=== PATIENT | female | born 1975 | race Caucasian/White ===

== ENCOUNTER → 2017-01-30 | Outpatient (CLI) | payer OTHER ==
[~2017-01-30] MED LIST: ENOX150D SQ; LEVO150T11 PO; LEVO175T9 PO; NEBI10TA PO; OLME1TAB31 PO; ONDA4TAB7 PO; RIVA20TA PO; TRAM50TA4 PO
--- NOTE | 2017-01-31 08:20 | DI ---
Indication: ITS.REASON: N23 RENAL COLIC PROCEDURE: KUB: Encounter: Initial Comparison: None Findings: Changes of prior hernia repair. Nonobstructive nonspecific bowel gas pattern. No obvious renal or ureteral stones. Moderate stool in the right colon. Bony structures are unremarkable. Impression: No radiographically apparent stones. .
== END ==
LOC: IMA 17:27
PROVIDERS: ATTEND Family Medicine
DX: N23 Unspecified renal colic (principal)

== ENCOUNTER → 2017-02-04 | Outpatient (CLI) | payer OTHER ==
--- NOTE | 2017-02-04 11:06 | DI ---
EXAM: CT RENAL W/O CONTRAST LOCATION OF DICTATION: [place] HISTORY: ITS.REASON: N20.2 CALCULUS OF KIDNEY W/ CALCULUS OF URETER COMPARISON: No prior studies available for comparison. TECHNIQUE: Multiple contiguous axial images were obtained of the abdomen and pelvis without contrast. Thin sections were obtained through the kidneys and ureters. Automated Exposure Control and Iterative Reconstruction dose reducing techniques were utilized. FINDINGS: CT ABDOMEN LUNG BASES: Unremarkable LIVER: The liver is mildly enlarged measuring 20 cm craniocaudally. SPLEEN: Unremarkable. GALLBLADDER: Unremarkable. PANCREAS: Unremarkable ADRENAL GLANDS: Unremarkable. KIDNEYS: There is a four mm calculus demonstrated within the lower pole the left kidney. There are no obstructing ureteral calculi identified. There is no hydronephrosis. AORTA: Unremarkable. There is an IVC filter noted to be in place. LYMPH NODES: Unremarkable. STOMACH BOWEL LOOPS: The bowel loops are normal caliber. There is no bowel obstruction or free intraperitoneal air. The appendix is normal. There are a few diverticulum demonstrated about the sigmoid and descending colon without diverticulitis. PERITONEAL CAVITY: There is no abdominal or pelvic inflammatory mass or ascites. Ventral abdominal hernia repair is suggested. CT PELVIS URINARY BLADDER: Unremarkable. PELVIC VISCERA: The uterus is unremarkable. There are no suspicious adnexal masses. There is no significant free fluid. OSSEOUS STRUCTURES: Unremarkable. IMPRESSION: 1. There is a tiny 4 mm calculus suggested within the lower pole the left kidney. There are no obstructing ureteral calculi. There is no hydronephrosis. 2. No inflammatory mass, lymphadenopathy, or ascites. 3. Postsurgical changes of ventral abdominal hernia repair. IVC filter is in place. 4. Diverticulosis without diverticulitis. .
== END ==
LOC: IMA 08:50
PROVIDERS: ATTEND Family Medicine
DX: N20.0 Calculus of kidney (principal); K57.30 Diverticulosis of large intestine without perforation or abscess without bleeding; Z98.890 Other specified postprocedural states

== ENCOUNTER 2017-02-06 15:28 | Observation (INO) | payer OTHER ==
[~2017-02-06] VITALS: Ht 165.1 cm; Wt 162.9 kg
[~2017-02-06 15:28] MED LIST changes: -ENOX150D SQ; -LEVO175T9 PO; -NEBI10TA PO; -OLME1TAB31 PO; -RIVA20TA PO; -TRAM50TA4 PO
--- OUTSIDE RECORDS SUMMARY | 2017-02-06 15:32 | XMS REPORT | Continuity of Care Document ---
Author Author [facility] Organization [facility] Address Unknown Phone Unavailable Support Name Relationship Address Phone DENIZ SETHI II, MD Caregiver [address] [facility] [address] [place] [phone] SARABJIT ALCALA MD Caregiver [facility] [place] [phone] RYAN MOELLER Next Of Kin [address] [place], [place] [address] Insurance Providers Payer Name Policy Number Subscriber Name Relationship [facility] [id number] Ryan Moeller 01 Spouse Problems No known problems or medical conditions. Medications No known medications. Social History No social history. Hospital Discharge Instructions No hospital discharge instructions. Plan of Care No plan of care. Functional Status No functional status results. Allergies, Adverse Reactions, Alerts Allergen Type Severity Reaction Status Last Updated Sulfa(Sulfonamide Antibiotics) Allergy Intermediate HIVES Active 02/18/12 Clavulanate Allergy Intermediate HIVES Active 02/18/12 adhesive tape Allergy Intermediate BLISTERS Active 02/18/12 Amoxicillin Allergy Intermediate HIVES Active 02/18/12 Immunizations No immunization records. Vital Signs No known vital signs results. Results Test Source Date Result Interp. Ref. Range Comments Activated Partial Thromboplast Time February 18, 2012 8:50am 24.9 SEC N 24- 36 Alanine Aminotransferase (ALT/SGPT) February 18, 2012 8:50am 32 U/L N 9-52 Albumin February 18, 2012 8:50am 4.1 G/DL N 3.5-5.0 Albumin/Globulin Ratio February 18, 2012 8:50am 1.2 RATIO N 1.1-2.2 Alkaline Phosphatase February 18, 2012 8:50am 81 U/L N 38-126 Anion Gap February 18, 2012 8:50am 8 MEQ/L N 5-15 Aspartate Amino Transf (AST/SGOT) February 18, 2012 8:50am 36 U/L N 14-36 BUN/Creatinine Ratio February 18, 2012 8:50am 10 RATIO N 6-26 Basophils # (Auto) February 18, 2012 8:50am 0.0 T/MM3 N 0-0.2 Basophils (%) (Auto) February 18, 2012 8:50am 0.7 % N 0-2 Blood Urea Nitrogen February 18, 2012 8:50am 8.0 MG/DL N 7-17 Calcium Level February 18, 2012 8:50am 8.9 MG/DL N 8.4-10.2 Calculated Osmolality February 18, 2012 8:50am 270 MOSM/KG N 261-280 Carbon Dioxide Level February 18, 2012 8:50am 29 MEQ/L N 22-30 Chloride Level February 18, 2012 8:50am 105 MEQ/L N 98-107 Creatinine February 18, 2012 8:50am 0.8 MG/DL N 0.7-1.2 D-Dimer February 18, 2012 11:15am 194 NG/ML N 0-230 <224 NG/ML=PRESUMPTIVE NEGATIVE FOR PE OR DVT>224 NG/ML=ADDITIONAL EVALUATION FOR PE OR DVT RECOMMENDED Eosinophils # (Auto) February 18, 2012 8:50am 0.1 T/MM3 N 0-0.5 Eosinophils (%) (Auto) February 18, 2012 8:50am 1.6 % N 0-4 Free Thyroxine February 18, 2012 8:50am 1.09 NG/DL N 0.78-2.19 Globulin February 18, 2012 8:50am 3.3 G/DL N 2.4-3.6 Glucose Level February 18, 2012 8:50am 84 MG/DL N 65-110 Hematocrit February 18, 2012 8:50am 40.4 % N 36-46 Hemoglobin February 18, 2012 8:50am 13.3 GM/DL N 12-16 Lymphocytes # (Auto) February 18, 2012 8:50am 2.1 T/MM3 N 1-4.8 Lymphocytes (%) (Auto) February 18, 2012 8:50am 39.2 % N 23-45 Magnesium Level February 18, 2012 8:50am 2.0 MG/DL N 1.6-2.3 Mean Corpuscular Hemoglobin February 18, 2012 8:50am 29.6 UUG N 26-34 Mean Corpuscular Hemoglobin Concent February 18, 2012 8:50am 32.9 GM/DL N 31- 37 Mean Corpuscular Volume February 18, 2012 8:50am 90.0 UM3 N 80-100 Mean Platelet Volume February 18, 2012 8:50am 10.2 UM3 N 9.4-12.4 Monocytes # (Auto) February 18, 2012 8:50am 0.4 T/MM3 N 0-0.8 Monocytes (%) (Auto) February 18, 2012 8:50am 7.3 % N 0-9.0 Neutrophils # (Auto) February 18, 2012 8:50am 2.8 T/MM3 N 1.8-7.7 Neutrophils (%) (Auto) February 18, 2012 8:50am 51.0 % N 33-66 Platelet Count February 18, 2012 8:50am 229 T/MM3 N 130-400 Potassium Level February 18, 2012 8:50am 3.8 MEQ/L N 3.6-5 Prothromb Time International Ratio February 18, 2012 8:50am 0.95 N 0.86-1.10 THERAPUTIC RANGE=2.00-3.00 FOR ANTI-THROMBOSIS THERAPUTIC RANGE=2.50-3.50 FOR IMPLANTED VALVE RDW Standard Deviation February 18, 2012 8:50am 40.7 FL N 36.9-50.2 Red Blood Count February 18, 2012 8:50am 4.49 M/MM3 N 4.00-5.20 Sodium Level February 18, 2012 8:50am 142 MEQ/L N 134-144 Thyroid Stimulating Hormone (TSH) February 18, 2012 8:50am 2.02 MIU/L N 0.47- 4.68 Total Bilirubin February 18, 2012 8:50am 0.90 MG/DL N 0.20-1.30 Total Protein February 18, 2012 8:50am 7.4 G/DL N 6.3-8.2 Troponin I February 18, 2012 8:50am < 0.012 ng/ml 0-0.12 Urine Bacteria February 18, 2012 10:00am Trace H - Has specimen been collected/obtained? Y Urine Bilirubin February 18, 2012 10:00am Negative - Has specimen been collected/obtained? Y Urine Blood February 18, 2012 10:00am 1+ H - Has specimen been collected/ obtained? Y Urine Collection Type February 18, 2012 10:00am Voided - Has specimen been collected/obtained? Y Urine Color February 18, 2012 10:00am Yellow - Has specimen been collected /obtained? Y Urine Glucose (UA) February 18, 2012 10:00am Negative - Has specimen been collected/obtained? Y Urine Ketones February 18, 2012 10:00am Negative - Has specimen been collected/obtained? Y Urine Leukocyte Esterase February 18, 2012 10:00am Trace H - Has specimen been collected/obtained? Y Urine Mucus February 18, 2012 10:00am Present - Has specimen been collected/obtained? Y Urine Nitrite February 18, 2012 10:00am Negative - Has specimen been collected/obtained? Y Urine Protein February 18, 2012 10:00am Negative - Has specimen been collected/obtained? Y Urine RBC February 18, 2012 10:00am 0-1 /HPF - Has specimen been collected /obtained? Y Urine Specific [place] February 18, 2012 10:00am 1.005 L - Has specimen been collected/obtained? Y Urine Squamous Epithelial Cells February 18, 2012 10:00am Few - Has specimen been collected/obtained? Y Urine Turbidity February 18, 2012 10:00am Clear - Has specimen been collected/obtained? Y Urine Urobilinogen February 18, 2012 10:00am Normal EU/DL - Has specimen been collected/obtained? Y Urine WBC February 18, 2012 10:00am 0-1 /HPF - Has specimen been collected /obtained? Y Urine pH February 18, 2012 10:00am 7.0 - Has specimen been collected/ obtained? Y White Blood Count February 18, 2012 8:50am 5.5 T/MM3 N 4.5-11.0 Lab Scanned Report August 28, 2009 9:40am BLOOD BANK DOCUMENTATION [id number] - Glomerular Filtration Rate Calc February 18, 2012 8:50am 80 - Immature Granulocyte # (Auto) February 18, 2012 8:50am 0.01 T/MM3 N 0.00- 0.03 Immature Granulocyte % (Auto) February 18, 2012 8:50am 0.2 % N 0.0-0.5 Name: DULCE MOELLER Unit #: [id number] : 1975 Sex: F Loc / Svc: [facility] DOS: 02/04/14 Signed Report #: [id number] DIAGNOSTIC IMAGING REPORT TYPE OF EXAM: US VENOUS DUPLEX, LOWER EXT RT Dictated By: SHERI HARTMAN MD INDICATION: ITS.REASON: 782.3 SWELLING,729.5 LEG PAIN;V12.51 HX DVT US VENOUS DUPLEX, LOWER EXT RT: Comparison: Duplex ultrasound dated June 21, 2007 Findings: There is nonocclusive deep venous thrombosis in the right thigh. This extends from the distal superficial femoral vein through the popliteal vein. The common femoral and posterior tibial veins appear patent and compressible. Greater saphenous vein is patent. Impression: Nonocclusive deep vein thrombosis involving the distal right superficial femoral vein through the popliteal vein. The patient had more extensive thrombosis in these areas in 2006 and the exact amount of acute versus chronic thrombus is unable to be determined with certainty. These results were discussed with Dr. Sethi at 1315 on February 04, 2014 . Procedures No known history of procedures. Encounters Encounter Location Date/Time Departed Emergency Room [facility] 04/24/14 9:16pm Registered Clinic [facility] 02/04/14 12:27pm Recent Diagnosis
[2017-02-06] MEDS ORDERED: NORMAL SALINE 1,000 ML IV ONE (15:47)
[2017-02-06] MEDS ORDERED: RIVA20TA PO (15:54)
[2017-02-06 15:57] LABS: BASOPHILS % (AUTO) 0.3 % (0-2); EOSINOPHILS # (AUTO) 0.1 T/MM3 (0-0.5); EOSINOPHILS % (AUTO) 0.8 % (0-4); HCT - HEMATOCRIT 38.1 % (36-46); HGB - HEMOGLOBIN 12.6 GM/DL (12-16); IMMATURE GRANULOCYTE # (AUTO) 0.02 T/MM3 (0.00-0.03); IMMATURE GRANULOCYTE % (AUTO) 0.3 % (0.0-0.5); LYMPHOCYTES # (AUTO) 2.3 T/MM3 (1-4.8); LYMPHOCYTES % (AUTO) 30.5 % (23-45); MEAN CORPUSCULAR HGB 29.6 UUG (26-34); MEAN CORPUSCULAR HGB CONC(MCHC 33.1 GM/DL (31-37); MEAN CORPUSCULAR VOLUME 89.4 UM3 (80-100); MEAN PLATELET VOLUME 10.1 UM3 (9.4-12.4); MONOCYTES # (AUTO) 0.6 T/MM3 (0-0.8); MONOCYTES % (AUTO) 7.8 % (0-9.0); NEUTROPHILS #(AUTO)-ABSOLUTE 4.6 T/MM3 (1.8-7.7); NEUTROPHILS % (AUTO) 60.3 % (33-66); RED BLOOD COUNT 4.26 M/MM3 (4.00-5.20); WBC - WHITE BLOOD COUNT 7.6 T/MM3 (4.5-11.0)
[2017-02-06] MEDS ORDERED: LEVO175T9 PO (15:57)
--- NOTE | 2017-02-06 15:57 | ERPDOC ---
Departure Disposition Decision Date: February 06, 2017 Disposition Decision Time: 19:01 Disposition: 02 TO OBS [facility] Impression Impression Impression: Primary Impression: Pulmonary embolism Pulmonary embolism type: other Chronicity: acute Acute cor pulmonale presence: without acute cor pulmonale Qualified Codes: I26.99 - Other pulmonary embolism without acute cor pulmonale Severity: Moderate Condition: Improved Seen By: Physician only Referrals: DENIZ SETHI II, MD (Family) Problems/Meds/Labs Reviewed?: Yes Medications reviewed and manag: Yes Follow up care ordered?: Yes Mental Status: Alert, Oriented HPI - Dyspnea General Chief Complaint: Back Pain or Injury Stated Complaint: HEAVINESS IN ARMS,PAINS MIDDLE OF BACK Time Seen by Provider: 15:47 Source: patient Exam Limitations: no limitations HPI - Dyspnea Initial Comments 42yo woman presents to the ER tonight with b/l arm pain and tearing back pain. Pt has a h/o chronic DVT; has a Pfeifer filter in place. Has had her anti- HTN changed recently; pt has had elevated BPs ever since. Had a CT 4 days ago, looking at her kidneys. Pt has been under increasing stress at home and work. Occurred At: home Onset/Timing: Rapid Duration: 1-3 hrs Pain/Severity Scale: Now & Worst: 6/10 Severity: moderate Activities at Onset: activity Prior Episodes/Possible Cause: no prior episodes Modifying Factors: IMPROVES WITH: lying down, rest, WORSE WITH: activity Associated Symptoms: shortness of breath Aspirin Treatment Today: contraindicated Hx of Similar Symptoms: No Allergies: Coded Allergies: Sulfa (Sulfonamide Antibiotics) (Verified Allergy, Intermediate, HIVES, 08/15) RASH adhesive tape (Verified Allergy, Intermediate, BLISTERS, 02/06/17) clavulanic acid (Verified Allergy, Mild, NAUSEA, 02/06/17) Past History Past Medical History Metabolic: hypertension, hypothyroidism Musculoskeletal: back pain Hematologic: DVT Vaccines Hx Influenza Vaccination: No Hx Pneumococcal Vaccination: No Review of Systems Musculoskeletal General: pain (Arms) Comments Back tearing Psychiatric Psychiatric: anxiety All other Systems All Other Systems: Reviewed and Negative Physical Exam General General Nourishment: well nourished, well developed, appears stated age, no acute distress, adult, obese General Body Habitus: well groomed Vitals and Pain First Documented Vital Signs Date Time Temp Pulse Resp B/P Pulse Ox O2 Delivery O2 Flow Rate FiO2 02/06/17 15:30 98.0 63 20 141/90 98 Room Air Weight: Kilograms: 162.200 Height (feet): 5 Height (inches): 5.00 Triage Pain Scale: RN VS reviewed by Provider: Yes Normal Exams: Head: Normocephalic w/o trauma Eyes: Pupils are PERRLA w/ EOMI, No scleral icterus, irritation ENMT: No facial trauma, nasal exudates, pharyngeal erythema Neck: Full range of motion, without adenopathy, JVD Lymphatic: No lymphadenopathy Musculoskeletal: No tenderness, or deformity noted Integumentary: No rashes, hives, or bruising noted Neurologic: Patient is alert, and oriented Psychiatric: Patient exhibits, appropriate attention Respiratory (brief) Respiratory: FOUND: clear all [place], equal bilaterally, symmetrical, NOT FOUND : rales, wheezes Cardiovascular (brief) Cardiac: FOUND: regular rate, regular rhythm, NOT FOUND: click, gallop, murmur , pedal edema, peripheral edema, rub Capillary Refill: <2 sec Pulses: all distal extremities, equal, strong Abdomen (brief) Abdominal Brief: FOUND: bowel normo active x4, soft, NOT FOUND: distended, hepatosplenomegaly, pulsatile mass, tender Differential Diagnoses Considering: Acute FL, CHF, Hyperventilation, Pneumonia, Pneumothorax, Pulmonary Edema, Pulmonary Embolus, Other (Aortic dissection) Progress Results/Orders Orders Procedure Category Date Status Time Cbc W/Auto LAB 02/06/17 Complete Diff-Reflex Manual 15:47 Bmp - Basic Metabolic LAB 02/06/17 Complete Panel 15:47 Probnp LAB 02/06/17 Complete 15:47 Troponin I W LAB 02/06/17 Complete Hemolysis Index 15:47 Tsh - Thyroid Stim LAB 02/06/17 Complete Hormone 15:47 EKG EKG 02/06/17 Taken 15:47 Iv Lock (Ed Only) EDM 02/06/17 Transmitted 15:47 Normal Saline (Normal PHA 02/06/17 Complete Saline Iv) 15:47 Cta Pe/Cta Aorta CT 02/06/17 Taken 15:55 Iohexol (Omnipaque) PHA 02/06/17 Complete 16:15 Iohexol (Omnipaque) PHA 02/06/17 Complete 16:15 Normal Saline (Ns) PHA 02/06/17 Complete 16:15 Saline Flush (Iv PHA 02/06/17 Complete Flush) 16:15 Place In Facility: ED ADM 02/06/17 Transmitted 18:26 Lab Results Laboratory Tests Test 02/06/17 15:51 White Blood Count 7.6T/MM3 Red Blood Count 4.26M/MM3 Hemoglobin 12.6GM/DL Hematocrit 38.1% Mean Corpuscular Volume 89.4UM3 Mean Corpuscular Hemoglobin 29.6UUG Mean Corpuscular Hemoglobin Concent 33.1GM/DL RDW Standard Deviation 40.4FL Platelet Count 276T/MM3 Mean Platelet Volume 10.1UM3 Immature Granulocyte % (Auto) 0.3% Neutrophils (%) (Auto) 60.3% Lymphocytes (%) (Auto) 30.5% Monocytes (%) (Auto) 7.8% Eosinophils (%) (Auto) 0.8% Basophils (%) (Auto) 0.3% Absolute Immature Granulocyte (auto 0.02T/MM3 Absolute Neutrophils (auto) 4.6T/MM3 Absolute Lymphocytes (auto) 2.3T/MM3 Absolute Monocytes (auto) 0.6T/MM3 Absolute Eosinophils (auto) 0.1T/MM3 Absolute Basophils (auto) 0.0T/MM3 Prothromb Time International Ratio 1.49 Activated Partial Thromboplast Time 33.5SEC Turbidity < 20 Sodium Level 144MEQ/L Potassium Level 3.8MEQ/L Chloride Level 100MEQ/L Carbon Dioxide Level 31MEQ/L Anion Gap 13MEQ/L Blood Urea Nitrogen 16.0MG/DL Creatinine 0.9MG/DL Glomerular Filtration Rate Calc 68 BUN/Creatinine Ratio 18RATIO Glucose Level 89MG/DL Calculated Osmolality 277MOSM/KG Calcium Level 9.5MG/DL Icterus Index < 2 Troponin I < 0.012ng/ml NH-Ege-E-Type Natriuretic Peptide 44PG/ML Thyroid Stimulating Hormone (TSH) 4.74MIU/L Chemistry Specimen Hemolysis < 15 Medications Current ED Medications Sodium Chloride (Normal Saline IV) 1,000 ml @ 0 mls/hr Q0M ONCE IV Last administered on 02/06/17t 15:59; Start 02/06/17 at 15:47; Stop 02/06/17 at 15:50 ; Status DC Iohexol (Omnipaque) 1 bottle [employer]-Segway ONCE .ROUTE ; Start 02/06/17 at 16:15; Stop 02/06/17 at 16:16; Status DC Iohexol 1 bottle 1 bottle STK-MED ONCE .ROUTE ; Start 02/06/17 at 16:15; Stop at 16:16; Status DC Sodium Chloride (NS) 100 ml @ As Directed STK-MED ONCE .ROUTE ; Start 02/06/17 at 16:15; Stop 02/06/17 at 16:16; Status DC Sodium Chloride (Iv Flush) 10 ml STK-MED ONCE .ROUTE ; Start 02/06/17 at 16:15; Stop 02/06/17 at 16:16; Status DC Progress Progress No dissection or PE found. Pt is already on chronic anticoag therapy. Has chronic DVT and Pfeifer filter. In the absence of evidence of intrathoracic pathology, pts sx are very reminiscent of panic attack or other anxiety d/o. EKG EKG : Rate: 60-100 Rhythm: sinus [place]: normal QRS: normal Intervals: normal ST/T: non-specific changes Interpreted by: signing physician Consult/PCP Consult/PCP #1: Physician Contacted: Leonel Time Called: 18:09 Time of first response: 18:09 Type of discussion: Phone Consult/PCP Discussion Details Pt has b/l LL PE's. Consult/PCP #2: Physician Contacted: Dr. Christine Time Called: 18:13 Type of discussion: Phone Consult/PCP CT CT : CT: Aorta IV contrast (With PE) Interpretation: Abnormal (No dissection; B/l LL PEs), Discussed w/ Radiologist, Reviewed Written Report SHARLENE WELDON DO February 06, 2017 15:57
[2017-02-06] MEDS ORDERED: TRAM50TA4 PO (15:58)
[2017-02-06] MEDS ORDERED: OLME1TAB31 PO (15:58)
[2017-02-06] MEDS ORDERED: NEBI10TA PO (15:59)
--- OUTSIDE RECORDS SUMMARY | 2017-02-06 16:02 | XMS REPORT | Continuity of Care Document ---
Author Author [facility] Organization [facility] Address Unknown Phone Unavailable Support Name Relationship Address Phone DENIZ SETHI II, MD Caregiver [address] [facility] [address] [place] [phone] SARABJIT ALCALA MD Caregiver [facility] [place] [address] [place] [phone] RYAN MOELLER Next Of Kin [address] [place], [place] [address] Insurance Providers Payer Name Policy Number Subscriber Name Relationship [facility] [id number] Ryan Moeller 01 Spouse Problems No known [...] specimen been collected /obtained? Y Urine Specific [place] February 18, 2012 10:00am 1.005 L - [...] August 28, 2009 9:40am BLOOD BANK DOCUMENTATION [id number] - Glomerular Filtration Rate Calc February 18, 2012 8:50am 80 - Immature Granulocyte # (Auto) February 18, 2012 8:50am 0.01 T/MM3 N 0.00- 0.03 Immature Granulocyte % (Auto) February 18, 2012 8:50am 0.2 % N 0.0-0.5 Name: DULCE MOELLER Unit #: [id number] : 1975 Sex: F [facility] DOS: 02/04/14 Signed Report #: [id number] DIAGNOSTIC IMAGING REPORT TYPE OF EXAM: US [...] Encounters Encounter Location Date/Time Departed Emergency Room [facility] 04/24/14 9:16pm Registered Clinic [facility] 02/04/14 12:27pm Recent Diagnosis
[2017-02-06 16:06] LABS: ANION GAP 13 MEQ/L (5-15); BUN/CREATININE RATIO 18 RATIO (6-26); CALCIUM 9.5 MG/DL (8.4-10.2); CHLORIDE 100 MEQ/L (98-107); CO2 - CARBON DIOXIDE 31 MEQ/L (22-30); CREATININE 0.9 MG/DL (0.7-1.2); GLOMERULAR FILTRATION RATE 68; GLUCOSE 89 MG/DL (65-110); POTASSIUM 3.8 MEQ/L (3.6-5); SODIUM 144 MEQ/L (134-144)
[2017-02-06] MEDS ORDERED: IOHEXOL 350 MG/ML 50ml INJECTION ONE (16:15)
[2017-02-06] MEDS ORDERED: NORMAL SALINE 100 ML ONE (16:15)
[2017-02-06] MEDS ORDERED: SALINE FLUSH 10ml SYRINGE ONE (16:15)
[2017-02-06] MEDS ORDERED: IOHEXOL 350 MG/ML 75ml INJECTION ONE (16:15)
[2017-02-06 16:19] LABS: PROBNP 44 PG/ML (0-175)
[2017-02-06 16:37] LABS: THYROID STIM HORMONE-TSH 4.74 MIU/L (0.47-4.68)
--- OUTSIDE RECORDS SUMMARY | 2017-02-06 18:34 | XMS REPORT | Continuity of Care Document ---
Author Author [facility] Organization [facility] Address Unknown Phone Unavailable Support Name Relationship Address Phone DENIZ SETHI II, MD Caregiver [address] [facility] [address] [place] [phone] SARABJIT ALCALA MD Caregiver [facility] [phone] RYAN MOELLER Next Of Kin [address] [place], [place] [id number] Insurance Providers Payer Name Policy Number Subscriber Name Relationship [facility] [id number] Ryan Moeller 01 Spouse Problems No known [...] specimen been collected /obtained? Y Urine Specific [place] February 18, 2012 10:00am 1.005 L - [...] August 28, 2009 9:40am BLOOD BANK DOCUMENTATION [id number] - Glomerular Filtration Rate Calc February 18, 2012 8:50am 80 - Immature Granulocyte # (Auto) February 18, 2012 8:50am 0.01 T/MM3 N 0.00- 0.03 Immature Granulocyte % (Auto) February 18, 2012 8:50am 0.2 % N 0.0-0.5 Name: DULCE MOELLER Unit #: [id number] : 1975 Sex: F Loc / Svc: [facility] DOS: 02/04/14 Signed Report #: [id number] DIAGNOSTIC IMAGING REPORT TYPE OF EXAM: US [...] Encounters Encounter Location Date/Time Departed Emergency Room [facility] 04/24/14 9:16pm Registered Clinic [facility] 02/04/14 12:27pm Recent Diagnosis
[2017-02-06 19:21] VITALS: Ht 165.1 cm; Wt 162.9 kg
[2017-02-06 19:25] VITALS: BP 131/77; PULSE 96; RESP 16; O2SAT 98
[2017-02-06 19:49] LABS: INR 1.49 (0.76-1.04); PROTHROMBIN TIME 16.2 SEC (9.31-12.49); PTT 33.5 SEC (24-36)
[2017-02-06] MEDS: ENOXAPARIN 150 MG/ML INJECTION SQ SCH ×2 (19:56→21:00)
[2017-02-06 20:00] VITALS: RESP 16
[2017-02-06] MEDS ORDERED: ONDANSETRON 4mg/2ml INJECTION IV PRN (20:15)
[2017-02-06] MEDS ORDERED: TRAMADOL 50 MG TABLET PO PRN (20:15)
[2017-02-06] MEDS ORDERED: METOCLOPRAMIDE 10mg/2ml INJECTION IV PRN (20:15)
[2017-02-06] MEDS ORDERED: ACETAMINOPHEN 325 MG TABLET PO PRN (20:15)
[2017-02-06] MEDS ORDERED: MILK OF MAGNESIA 30 ML SUSP PO PRN (20:15)
--- NOTE | 2017-02-06 20:45 | HPPDOC ---
HPI - Adult Date DATE: 02/06/17 TIME: 20:23 General Chief Complaint: sudden onset back pain, dyspnea dizziness, difficulty moving arms History of Present Illness The patient is a pleasant 42-year-old female who was seen accompanied by her . They're celebrating their 20th anniversary today. I did go to see the patient in the ER but they were taking her directly to her room at the time. I was called by the ER physician and asked to admit this patient who had CTA chest and abdomen showing bilateral lower lung PEs. She has a history of chronic DVT in the right leg starting 9 years ago and had an IVC filter placed around that time. For the majority of the past 9 years she's been on Coumadin or Lovenox. She was started on Xarelto several months ago. She states she was told in the past that she had 4 clotting disorders and did see a blood specialist but she cannot remember his name. She last took her Xarelto this morning and has been compliant with dosing. She states that around 11 AM today she noticed sudden onset of back pain in her mid back and stated that it was hard to move her arms. She also felt short of breath and dizzy. She had some pain radiating up into her neck and to the front of her chest. She states all of those symptoms are much better now and she has some mild back pain only at this time. She states if she tries to lie down flat she feels short of breath. At rest sitting up in the bed she does not feel short of breath. She denies any abnormal bleeding problems. She denies any recent symptoms of infection. She has recently had troubles getting her blood pressure under control and her medications have recently been adjusted. Today she started Bystolic and a combination pill with olmesartan/amlodipine/hydrochlorothiazide. Blood pressure is well controlled today in the emergency room. I did review the CTA report and it did read: bilateral PEs at least in the lower lobes cannot be excluded. I did call and talk with Dr. Munoz at [facility] for clarification. He states he did see what looked like filling defects in the pulmonary arteries in the lower lung [place] but that CT was not ideal because the patient was breathing during the test. After discussing report with the radiologist I immediately saw the patient and reviewed her history. I did talk with Dr. Packer, making department preparer, and he did recommend initiating Lovenox 1 mg/kg subcutaneous every 12. Because of her morbid obesity it was recommended to give 150 mg subcutaneous every 12 instead of 164 mg subcutaneous every 12 due to max dose being 300 mg per day. Past Medical History Past Medical History Chronic DVT right leg diagnosed 9 years ago, IVC filter placed at that time (the majority of the time the patient was on Coumadin or Lovenox, several months ago started on Xarelto Anxiety Hypertension Hypothyroid Clotting disorder-per patient for different types 4 mm kidney stone in the pole of left kidney Surgical History Patient's Surgical History: Tubal ligation Breast reduction Cholecystectomy IVC filter placement 2 Hernia repair 2 Ganglion cyst surgery Current Medications Home Meds Reported Medications Nebivolol HCl (Bystolic) 10 Mg Tablet, 10 MG PO BID 02/06/17 Tramadol HCl (Tramadol HCl) 50 Mg Tablet, 50 MG PO Q6HR Y for PAIN 02/06/17 Olmesartan/Amlodipin/Hcthiazid (Tribenzor 20-5-12.5 mg Tablet) 1 Each Tablet, 1 TAB PO BID 02/06/17 Levothyroxine Sodium (Levothyroxine Sodium) 175 Mcg Tablet, 175 MCG PO ACB 02/06/17 Rivaroxaban (Xarelto) 20 Mg Tablet, 20 MG PO DAILY 02/06/17 Allergies: Coded Allergies: Sulfa (Sulfonamide Antibiotics) (Verified Allergy, Intermediate, HIVES, 08/15) RASH adhesive tape (Verified Allergy, Intermediate, BLISTERS, 02/06/17) clavulanic acid (Verified Allergy, Mild, NAUSEA, 02/06/17) Family History Family History: Mother is adopted On her father's side her grandfather had blood clots, grandmother had cancer of unknown type and 2 uncles had lymphoma Social History Marital Status: Advance Directives: No DPOA for Healthcare Only Review of Systems Unable to Obtain Comments Comprehensive review of systems is negative other than the above in history of present illness Physical Exam General Vital Signs Vital Signs Date Time Temp Pulse Resp B/P Pulse Ox O2 Delivery O2 Flow Rate FiO2 02/06/17 19:25 96 16 131/77 98 Room Air 02/06/17 15:30 98.0 Height (Feet): 5 Height (Inches): 5.00 Comments GEN-very pleasant 42-year-old female who is alert, oriented, no acute distress HEENT-sclera anicteric, pupils equal and round, oropharynx is moist NECK-supple CV-regular rate and rhythm without murmur CHEST-clear to auscultation bilaterally ABD-soft, obese, nontender, nondistended with positive bowel sounds -no Lauren EXT-no edema NEURO-no focal deficits SKIN-warm and dry and without rashes Neurologic RN Documented GCS Eye Opening: Verbal: Motor: Total: Laboratory Laboratory Tests Test 02/06/17 15:51 White Blood Count 7.6T/MM3 Red Blood Count 4.26M/MM3 Hemoglobin 12.6GM/DL Hematocrit 38.1% Mean Corpuscular Volume 89.4UM3 Mean Corpuscular Hemoglobin 29.6UUG Mean Corpuscular Hemoglobin Concent 33.1GM/DL RDW Standard Deviation 40.4FL Platelet Count 276T/MM3 Mean Platelet Volume 10.1UM3 Immature Granulocyte % (Auto) 0.3% Neutrophils (%) (Auto) 60.3% Lymphocytes (%) (Auto) 30.5% Monocytes (%) (Auto) 7.8% Eosinophils (%) (Auto) 0.8% Basophils (%) (Auto) 0.3% Absolute Immature Granulocyte (auto 0.02T/MM3 Absolute Neutrophils (auto) 4.6T/MM3 Absolute Lymphocytes (auto) 2.3T/MM3 Absolute Monocytes (auto) 0.6T/MM3 Absolute Eosinophils (auto) 0.1T/MM3 Absolute Basophils (auto) 0.0T/MM3 Prothromb Time International Ratio 1.49 Activated Partial Thromboplast Time 33.5SEC Turbidity < 20 Sodium Level 144MEQ/L Potassium Level 3.8MEQ/L Chloride Level 100MEQ/L Carbon Dioxide Level 31MEQ/L Anion Gap 13MEQ/L Blood Urea Nitrogen 16.0MG/DL Creatinine 0.9MG/DL Glomerular Filtration Rate Calc 68 BUN/Creatinine Ratio 18RATIO Glucose Level 89MG/DL Calculated Osmolality 277MOSM/KG Calcium Level 9.5MG/DL Icterus Index < 2 Troponin I < 0.012ng/ml ID-Cve-D-Type Natriuretic Peptide 44PG/ML Thyroid Stimulating Hormone (TSH) 4.74MIU/L Chemistry Specimen Hemolysis < 15 EKG EKG shows sinus rhythm with sinus arrhythmia and nonspecific T-wave abnormalities. Heart rate is [address] renal without contrast on 02/04/2017 IMPRESSION: 1. There is a tiny 4 mm calculus suggested within the lower pole the left kidney. There are no obstructing ureteral calculi. There is no hydronephrosis. 2. No inflammatory mass, lymphadenopathy, or ascites. 3. Postsurgical changes of ventral abdominal hernia repair. IVC filter is in place. 4. Diverticulosis without diverticulitis. CTA chest abdomen and pelvis showing bilateral lower lobe pulmonary emboli cannot be excluded Assessment & Plan Assessment Impression Bilateral pulmonary emboli in a patient already on Xarelto-fortunately she is not hypoxic and is cardiovascularly stable History of chronic DVT in the right leg with IVC filter on Xarelto 4 mm nonobstructing renal stone Hypertension recently being difficult to control, now on new medication and blood pressure is well controlled today Hypothyroidism Morbid obesity Anxiety Plan Discussed with Dr. Packer, Lovenox started after reviewing CT scan and discussing with Dr. Packer. May need to check an anti-10 A level. Will discuss timing with Dr. Packer. Dr. Packer has been consulted. Stop Xarelto Continue antihypertensives but hold if blood pressure is low Echocardiogram regarding recent PEs Telemetry Continuous oximetry Cardiac diet DVT Prophylaxis: Lovenox Code Status Full Code Hospital Course Summary Disclaimer The hospital course summary below is not to be considered part of the above Progress Note. YULIANA JEFFREY MD February 06, 2017 20:33
[2017-02-06] MEDS ORDERED: NEBIVOLOL 5 MG TABLET PO SCH (21:00)
[2017-02-06] MEDS ORDERED: HCTHIAZID PO SCH (21:00)
[2017-02-06] MEDS ORDERED: OLMESARTAN PO SCH (21:00)
[2017-02-06] MEDS ORDERED: AMLODIPIN PO SCH (21:00)
[2017-02-06 21:07] VITALS: O2SAT 98
[2017-02-07] VITALS (11 sets, daily range): BP systolic 117–148; BP diastolic 58–79; PULSE 52–87; RESP 16; TEMP 97.6–97.8; O2SAT 93–99
[2017-02-07 04:41] LABS: BASOPHILS % (AUTO) 0.5 % (0-2); EOSINOPHILS # (AUTO) 0.1 T/MM3 (0-0.5); EOSINOPHILS % (AUTO) 1.2 % (0-4); HGB - HEMOGLOBIN 11.6 GM/DL (12-16); IMMATURE GRANULOCYTE # (AUTO) 0.03 T/MM3 (0.00-0.03); IMMATURE GRANULOCYTE % (AUTO) 0.5 % (0.0-0.5); LYMPHOCYTES # (AUTO) 2.6 T/MM3 (1-4.8); LYMPHOCYTES % (AUTO) 40.4 % (23-45); MEAN CORPUSCULAR HGB 28.9 UUG (26-34); MEAN CORPUSCULAR HGB CONC(MCHC 32.2 GM/DL (31-37); MEAN CORPUSCULAR VOLUME 89.8 UM3 (80-100); MEAN PLATELET VOLUME 10.1 UM3 (9.4-12.4); MONOCYTES # (AUTO) 0.6 T/MM3 (0-0.8); MONOCYTES % (AUTO) 9.9 % (0-9.0); NEUTROPHILS #(AUTO)-ABSOLUTE 3.1 T/MM3 (1.8-7.7); NEUTROPHILS % (AUTO) 47.5 % (33-66); RED BLOOD COUNT 4.01 M/MM3 (4.00-5.20); WBC - WHITE BLOOD COUNT 6.4 T/MM3 (4.5-11.0)
[2017-02-07 04:51] LABS: ANION GAP 9 MEQ/L (5-15); BUN/CREATININE RATIO 18 RATIO (6-26); CALCIUM 9.2 MG/DL (8.4-10.2); CHLORIDE 104 MEQ/L (98-107); CO2 - CARBON DIOXIDE 28 MEQ/L (22-30); CREATININE 0.8 MG/DL (0.7-1.2); GLOMERULAR FILTRATION RATE 78; GLUCOSE 96 MG/DL (65-110); POTASSIUM 3.8 MEQ/L (3.6-5); SODIUM 141 MEQ/L (134-144)
[2017-02-07] MEDS ORDERED: LEVOTHYROXINE 175 MCG TABLET PO SCH (06:30)
[2017-02-07] MEDS ORDERED: TRAMADOL 50 MG TABLET PO PRN (06:45)
[2017-02-07] MEDS: ENOXAPARIN 150 MG/ML INJECTION SQ SCH (08:59)
[2017-02-07] MEDS ORDERED: AMLODIPINE 5 MG TABLET PO SCH (09:00)
[2017-02-07] MEDS ORDERED: OLMESARTAN PO SCH (09:00)
[2017-02-07] MEDS ORDERED: HCTZ PO SCH (09:00)
--- NOTE | 2017-02-07 09:36 | DI ---
Indication: ITS.REASON: H/o DVT + back pain/b/l arm pain in HTN CTA PE/CTA AORTA: Comparison: 02/18/2012 Technique: Patient is scanned after approximately 120 cc of Omni 350 intravenous contrast with dose reduction imaging technology and reformatted sagittal, coronal and 3-D MIP imaging. Findings: Patient does indicate filling defects supportive of pulmonary thromboembolism. The patient is large and detail poor due to technical issues but, there didn't seem to be potential filling defects bilaterally in the lower lobes. Heart, aorta and great vessels showed no additional acute findings. Pulmonary parenchyma shows no focal parenchymal consolidations or masses. Impression: Technically difficult and challenging exam but, potential pulmonary emboli identified bilaterally. This was communicated to the ordering clinician as a critical result at 6:09 PM on 02/06/2017. .
--- NOTE | 2017-02-07 11:26 | NUR ---
CM THIS WORKER SPOKE WITH PT, AND SPOUSE WAS PRESENT. INTRODUCED SELF, EXPLAINED ROLE, PROVIDED CONTACT INFO. PT AND SPOUSE STATED THEY LIVE IN [place], AND DC PLAN IS FOR PT TO RETURN HOME. PT AND SPOUSE DENIED HAVING ANY NEEDS. ENCOURAGED THEM TO CALL IF QUESTIONS/NEEDS DO ARISE. Addendum: 02/07/17 at 1127 by EMILIA HARRELL Amended: Links added.
--- NOTE | 2017-02-07 11:27 | NUR ---
[facility] DPOA CONSULT INFO PROVIDED TO PT; PT OPTED TO REVIEW IT AND HAVE IT NOTARIZED AT A LATER TIME AFTER SHE LEAVES THE HOSPITAL. Addendum: 02/07/17 at 1127 by EMILIA HARRELL Amended: Links added.
--- NOTE | 2017-02-07 11:28 | NUR ---
[facility] CHAMBERS IS 4. Addendum: 02/07/17 at 1128 by EMILIA MCMULLEN SW Amended: Links added.
--- NOTE | 2017-02-07 12:42 | CONSPD ---
MONICA MUNOZ ARTIFICIAL LOG MACHINE OPERATOR 02/07/17 1242: Consultation Info Date DATE: 02/07/17 TIME: 12:37 Date of Consultation: February 07, 2017 Attending Physician: Dr. Ritchie Reason for Consultation: isabella. pulmonary emboli-on Xarelto HPI - Adult Date DATE: 02/07/17 TIME: 12:37 General Chief Complaint: sudden onset back pain, dyspnea dizziness, difficulty moving arms History of Present Illness 42-year-old , LMP 01/20/17 presented to [facility] emergency room yesterday with acute back pain, chest tightness, dyspnea, and difficulty lifting her arms. Has a prior history of DVT / clotting disorder and hypertension. States " I was worried I was having a heart attack". Evaluation in the emergency room demonstrated uncontrolled hypertension and CTA showed bilateral pulmonary emboli. Patient was admitted for further evaluation and treatment. At time of intake, she is reclining in hospital bed, at bedside. States back discomfort and chest tightness persist, slightly improved. Denies fever, chills, or night sweats. No shortness of air currently. No headache or vision changes. Denies nausea, vomiting, abdominal pain. Normal stooling, no dysuria or hematuria. States heavy menstrual cycles, every 2 weeks for the past 6 months to a year. 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 Prior history of tubal ligation. Gives history of "lumpy breasts." Has had prior breast biopsy, benign findings. Has been greater than 2 years since her last mammogram. Reports chronic swelling bilateral lower extremities, "maybe a little worse the past few weeks." Past Medical History Past Medical History Chronic DVT right leg diagnosed 9 years ago, IVC filter placed at that time (the majority of the time the patient was on Coumadin or Lovenox, several months ago started on Xarelto Anxiety Hypertension Hypothyroid Clotting disorder-per patient for different types 4 mm kidney stone in the pole of left kidney Surgical History Patient's Surgical History: Tubal ligation Breast reduction Cholecystectomy IVC filter placement 2 History of Breast biopsy, self-reports negative findings Hernia repair 2 Ganglion cyst surgery Current Medications Home Meds Reported Medications Nebivolol HCl (Bystolic) 10 Mg Tablet, 10 MG PO BID 02/06/17 Tramadol HCl (Tramadol HCl) 50 Mg Tablet, 50 MG PO Q6HR Y for PAIN 02/06/17 Olmesartan/Amlodipin/Hcthiazid (Tribenzor 20-5-12.5 mg Tablet) 1 Each Tablet, 1 TAB PO BID 02/06/17 Levothyroxine Sodium (Levothyroxine Sodium) 175 Mcg Tablet, 175 MCG PO ACB 02/06/17 Rivaroxaban (Xarelto) 20 Mg Tablet, 20 MG PO DAILY 02/06/17 Allergies: Coded Allergies: Sulfa (Sulfonamide Antibiotics) (Verified Allergy, Intermediate, HIVES, 08/15) RASH adhesive tape (Verified Allergy, Intermediate, BLISTERS, 02/06/17) clavulanic acid (Verified Allergy, Mild, NAUSEA, 02/06/17) Family History Family History: Mother is adopted On her father's side her grandfather had blood clots, grandmother had cancer of unknown type and 2 uncles had lymphoma Social History Marital Status: Current Occupational Status: employed (hairdresser) Advance Directives: No DPOA for Healthcare Only Review of Systems Constitutional: REPORTS: weight gain (patient feels is fluid gain), DENIES: chills, fever, night sweats Eyes Vision: DENIES: double vision ENMT Mouth/Throat: DENIES: sore throat, sores Cardiovascular chest pain (describes as tightness), other (dyspnea yesterday with back pain and chest tightness. Denies shortness of air today) Vascular: other (history DVT right lower extremity), pedal edema Pulmonary Respiratory: DENIES: cough, dyspnea (denies currently) GI Upper Abdomen: DENIES: food intolerances, heartburn/indigestion, pain Lower Abdomen: DENIES: blood in stool General: DENIES: frequency, hematuria, urgency Female: menometrorrhagia, see HPI : (6), para (4) Musculoskeletal General: edema (bilateral lower extremities), pain, DENIES: joint pain, weakness Integumentary Skin: DENIES: itching, rash Neurological General: DENIES: change in strength, headache Psychiatric Psychiatric: anxiety Physical Exam General General Nourishment: obese General Body Habitus: well groomed Vital Signs Vital Signs Date Time Temp Pulse Resp B/P Pulse Ox O2 Delivery O2 Flow Rate FiO2 02/07/17 12:13 97.6 56 16 148/79 99 Room Air Height (Feet): 5 Height (Inches): 5.00 Eyes Brief: FOUND: EOMI, NOT FOUND: scleral icterus ENMT Brief: FOUND: mucosa moist, NOT FOUND: lesions Neck Brief: NOT FOUND: adenopathy Respiratory Brief: FOUND: clear all [place], other (diminished bilateral posterior.), NOT FOUND: wheezes Cardiovascular (brief) Cardiac Brief: FOUND: pedal edema (bilateral- trace1+, right greater than left), regular rate, regular rhythm Abdomen (brief) Abdominal Brief: FOUND: BS normo active x4, other (no organomegaly or mass, but difficult to assess secondary to body habitus), NOT FOUND: tender Lymphatic (brief) Lymphatic Brief: NOT FOUND: adenopathy Musculoskeletal (brief) Musculoskeletal Brief: NOT FOUND: tenderness Neurologic RN Documented GCS Eye Opening: Verbal: Motor: Total: Psychiatric (brief) FOUND: alert, attentive, normal affect, oriented Laboratory Laboratory Tests Test 02/06/17 15:51 02/07/17 04:20 White Blood Count 7.6T/MM3 6.4T/MM3 Red Blood Count 4.26M/MM3 4.01M/MM3 Hemoglobin 12.6GM/DL 11.6GM/DL Hematocrit 38.1% 36.0% Mean Corpuscular Volume 89.4UM3 89.8UM3 Mean Corpuscular Hemoglobin 29.6UUG 28.9UUG Mean Corpuscular Hemoglobin Concent 33.1GM/DL 32.2GM/DL RDW Standard Deviation 40.4FL 41.0FL Platelet Count 276T/MM3 250T/MM3 Mean Platelet Volume 10.1UM3 10.1UM3 Immature Granulocyte % (Auto) 0.3% 0.5% Neutrophils (%) (Auto) 60.3% 47.5% Lymphocytes (%) (Auto) 30.5% 40.4% Monocytes (%) (Auto) 7.8% 9.9% Eosinophils (%) (Auto) 0.8% 1.2% Basophils (%) (Auto) 0.3% 0.5% Absolute Immature Granulocyte (auto 0.02T/MM3 0.03T/MM3 Absolute Neutrophils (auto) 4.6T/MM3 3.1T/MM3 Absolute Lymphocytes (auto) 2.3T/MM3 2.6T/MM3 Absolute Monocytes (auto) 0.6T/MM3 0.6T/MM3 Absolute Eosinophils (auto) 0.1T/MM3 0.1T/MM3 Absolute Basophils (auto) 0.0T/MM3 0.0T/MM3 Prothromb Time International Ratio 1.49 Activated Partial Thromboplast Time 33.5SEC Turbidity < 20 < 20 Sodium Level 144MEQ/L 141MEQ/L Potassium Level 3.8MEQ/L 3.8MEQ/L Chloride Level 100MEQ/L 104MEQ/L Carbon Dioxide Level 31MEQ/L 28MEQ/L Anion Gap 13MEQ/L 9MEQ/L Blood Urea Nitrogen 16.0MG/DL 14.0MG/DL Creatinine 0.9MG/DL 0.8MG/DL Glomerular Filtration Rate Calc 68 78 BUN/Creatinine Ratio 18RATIO 18RATIO Glucose Level 89MG/DL 96MG/DL Calculated Osmolality 277MOSM/KG 272MOSM/KG Calcium Level 9.5MG/DL 9.2MG/DL Icterus Index < 2 < 2 Troponin I < 0.012ng/ml [id number] Natriuretic Peptide 44PG/ML Thyroid Stimulating Hormone (TSH) 4.74MIU/L Chemistry Specimen Hemolysis < 15 < 15 Radiology 02/06/17 CTA PE/CTA aorta Impression: Technically difficult and challenging exam but potential pulmonary emboli identified bilaterally Impression/Recommendation Impression 1. [place] [id number] mutation and heterozygous MTHFR mutation-see Dr. Atwood inpatient consultation [facility] 05/2007 2. Bilateral pulmonary emboli. History DVT, status post IVC filter. Previously on warfarin, for past 6 months has been on Xarelto 3. Menometrorrhagia Recommendation Continue Lovenox. Continue supportive care. Will do anti-Xa to monitor effectiveness of Lovenox when appropriate. Dr Packer to see later today MATHEW PACKER 02/07/171816: Past Medical History Current Medications Home Meds Reported Medications Nebivolol HCl (Bystolic) 10 Mg Tablet, 10 MG PO BID 02/06/17 Tramadol HCl (Tramadol HCl) 50 Mg Tablet, 50 MG PO Q6HR Y for PAIN 02/06/17 Olmesartan/Amlodipin/Hcthiazid (Tribenzor 20-5-12.5 mg Tablet) 1 Each Tablet, 1 TAB PO BID 02/06/17 Levothyroxine Sodium (Levothyroxine Sodium) 175 Mcg Tablet, 175 MCG PO ACB 02/06/17 Rivaroxaban (Xarelto) 20 Mg Tablet, 20 MG PO DAILY 02/06/17 Allergies: Coded Allergies: Sulfa (Sulfonamide Antibiotics) (Verified Allergy, Intermediate, HIVES, 08/15) RASH adhesive tape (Verified Allergy, Intermediate, BLISTERS, 02/06/17) clavulanic acid (Verified Allergy, Mild, NAUSEA, 02/06/17) Physical Exam Neurologic (brief) Neurological Brief: FOUND: cranial 2-12 intact Laboratory Item Value Date Time White Blood Count 7.6 T/MM3 02/06/17 1551 White Blood Count 6.4 T/MM3 02/07/17 0420 Hemoglobin 12.6 GM/DL 02/06/17 1551 Hemoglobin 11.6 GM/DL L 02/07/17 0420 Platelet Count 276 T/MM3 02/06/17 1551 Platelet Count 250 T/MM3 02/07/17 0420 Thyroid Stimulating Hormone (TSH) 4.74 MIU/L H 02/06/17 1551 Impression/Recommendation Impression Patient examined, chart reviewed, agree with documentation by Jennifer Munoz. Discussed with Dr. Christine. 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 She has had recurrence while on's are also although based on her very high BMI Based on Up to date, Xarelto Dosing: Obesity Body weight >120 kg did not significantly influence rivaroxaban exposure (Niyah 2007). Clinical outcomes in postoperative thromboprophylaxis trials were also not affected by weight (up to 190 kg) (Davon 2011). Therefore , dosage adjustment may not be required. The International Society on Thrombosis and Haemostasis (ISTH) 2016 guideline suggests avoiding the use of rivaroxaban (and other direct oral anticoagulants) in patients with a BMI >40 kg /m2 or weight >120 kg due to the lack of clinical data in this population. If used in a patient with a BMI >40 kg/m2 or weight >120 kg, ISTH suggests measuring peak and trough levels using an antifactor Xa assay or mass spectrometry. If drug level is below the expected range, ISTH suggests changing to a vitamin K antagonist rather than adjusting the dose of rivaroxaban (ISTH [ Phil 2016]). As she has had recurrence and steady states her would recommend using Lovenox. This could be transitioned over to warfarin as an outpatient. Will see back in the office on Friday to review homocystine value although the benefit of treatment treating hyper homocystinemia in the face of thrombosis is currently questionable in the literature. 2. 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 Recommended compression stockings and avoiding long-term standing. 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 Recommendation Follow-up on Friday Lovenox 150 mg twice a day. MONICA MUNOZ APRN February 07, 2017 12:42 MATHEW PACKER February 07, 2017 18:17
--- NOTE | 2017-02-07 13:59 | NUR ---
CM SPOKE WITH DR. JEFFREY, PT WILL PROBABLY NEED HOME LOVENOX. SPOKE WITH PT ABOUT THIS, OBTAINED PHARMACY OF CHOICE, FAXED SCRIPT FOR COVERAGE.
--- NOTE | 2017-02-07 14:41 | NUR ---
status Pt A/O x3, V/S stable on RA. Pt ambulating in room and halls well, denies SOA or dizziness. Pt wanted to do her own lovenox injection R/T incase has to do at home. Urine output good for shift, no BM. Eating and drinking well, no N/V.
--- NOTE | 2017-02-07 15:43 | NUR ---
CM CALL TO SAM AT [facility] ([facility] [address]); SHE SAID THE LOVENOX WOULD BE $5 COPAY. RELAYED THIS TO DOCTOR AND PT; PT STATED THIS IS OK FOR HER. SHE SAID SHE HOPES SHE CAN LEAVE TODAY.
[2017-02-07] MEDS ORDERED: ENOX150D SQ (18:21)
--- NOTE | 2017-02-07 19:00 | NUR ---
DC Pt DC to home, meds called in to Rx and pt to picker feeder to start 1st dose tonight. Pt denies pain at this time, dressed, and belongings gathered. IV taken out, cath tip intact. DC instructions given, no questions at this time. Pt walked to front door at 1900.
--- NOTE | 2017-02-07 20:15 | DSPDOC ---
General Date Date DATE: 02/07/17 TIME: 20:03 Attending Physician Aaliyah Christine MD Admitting Physician Aaliyah Christine MD Consulting Physician Imtiaz Packer Admitting Diagnosis B/L LL PE Discharge Diagnosis Bilateral lower lobe pulmonary emboli, [place] [id number] mutation and heterozygous MTHFR mutation-see Dr. Atwood inpatient [place] [facility] [place] History of DVT, Status post IVC filter, Menometrorrhagia, 4 mm kidney stone in the left kidney recently diagnosed, Procedures Echocardiogram was obtained and is pending Laboratory Laboratory Tests Test 02/06/17 15:51 02/07/17 04:20 02/07/17 18:36 White Blood Count 7.6T/MM3 (4.5-11.0) 6.4T/MM3 (4.5-11.0) Red Blood Count 4.26M/MM3 (4.00-5.20) 4.01M/MM3 (4.00-5.20) Hemoglobin 12.6GM/DL (12-16) 11.6GM/DL (12-16) Hematocrit 38.1% (36-46) 36.0% (36-46) Mean Corpuscular Volume 89.4UM3 (80-100) 89.8UM3 (80-100) Mean Corpuscular Hemoglobin 29.6UUG (26-34) 28.9UUG (26-34) Mean Corpuscular Hemoglobin Concent 33.1GM/DL (31-37) 32.2GM/DL (31-37) RDW Standard Deviation 40.4FL (36.9-50.2) 41.0FL (36.9-50.2) Platelet Count 276T/MM3 (130-400) 250T/MM3 (130-400) Mean Platelet Volume 10.1UM3 (9.4-12.4) 10.1UM3 (9.4-12.4) Immature Granulocyte % (Auto) 0.3% (0.0-0.5) 0.5% (0.0-0.5) Neutrophils (%) (Auto) 60.3% (33-66) 47.5% (33-66) Lymphocytes (%) (Auto) 30.5% (23-45) 40.4% (23-45) Monocytes (%) (Auto) 7.8% (0-9.0) 9.9% (0-9.0) Eosinophils (%) (Auto) 0.8% (0-4) 1.2% (0-4) Basophils (%) (Auto) 0.3% (0-2) 0.5% (0-2) Absolute Immature Granulocyte (auto 0.02T/MM3 (0.00-0.03) 0.03T/MM3 (0.00-0.03) Absolute Neutrophils (auto) 4.6T/MM3 (1.8-7.7) 3.1T/MM3 (1.8-7.7) Absolute Lymphocytes (auto) 2.3T/MM3 (1-4.8) 2.6T/MM3 (1-4.8) Absolute Monocytes (auto) 0.6T/MM3 (0-0.8) 0.6T/MM3 (0-0.8) Absolute Eosinophils (auto) 0.1T/MM3 (0-0.5) 0.1T/MM3 (0-0.5) Absolute Basophils (auto) 0.0T/MM3 (0-0.2) 0.0T/MM3 (0-0.2) Prothromb Time International Ratio 1.49 (0.76-1.04) Activated Partial Thromboplast Time 33.5SEC (24-36) Turbidity < 20 (0-20) < 20 (0-20) Sodium Level 144MEQ/L (134-144) 141MEQ/L (134-144) Potassium Level 3.8MEQ/L (3.6-5) 3.8MEQ/L (3.6-5) Chloride Level 100MEQ/L (98-107) 104MEQ/L (98-107) Carbon Dioxide Level 31MEQ/L (22-30) 28MEQ/L (22-30) Anion Gap 13MEQ/L (5-15) 9MEQ/L (5-15) Blood Urea Nitrogen 16.0MG/DL (7-17) 14.0MG/DL (7-17) Creatinine 0.9MG/DL (0.7-1.2) 0.8MG/DL (0.7-1.2) Glomerular Filtration Rate Calc 68 78 BUN/Creatinine Ratio 18RATIO (6-26) 18RATIO (6-26) Glucose Level 89MG/DL (65-110) 96MG/DL (65-110) Calculated Osmolality 277MOSM/KG (261-280) 272MOSM/KG (261-280) Calcium Level 9.5MG/DL (8.4-10.2) 9.2MG/DL (8.4-10.2) Icterus Index < 2 (0-7) < 2 (0-7) Troponin I < 0.012ng/ml (0-0.12) EW-Sez-P-Type Natriuretic Peptide 44PG/ML (0-175) Thyroid Stimulating Hormone (TSH) 4.74MIU/L (0.47-4.68) Chemistry Specimen Hemolysis < 15 (0-25) < 15 (0-25) Radiology CTA chest for PE/CTA aorta This was a technically difficult and challenging exam but, potential pulmonary emboli identified bilaterally. The patient does have filling defects in the lower lobes supportive of pulmonary thromboembolism. History of Present Illness 42-year-old , LMP 01/20/17 presented to [facility] emergency room yesterday with acute back pain, chest tightness, dyspnea, and difficulty lifting her arms. Has a prior history of DVT / clotting disorder and hypertension. States " I was worried I was having a heart attack". Evaluation in the emergency room demonstrated uncontrolled hypertension and CTA showed bilateral pulmonary emboli. Patient was admitted for further evaluation and treatment. At time of intake, she is reclining in hospital bed, at bedside. States back discomfort and chest tightness persist, slightly improved. Denies fever, chills, or night sweats. No shortness of air currently. No headache or vision changes. Denies nausea, vomiting, abdominal pain. Normal stooling, no dysuria or hematuria. States heavy menstrual cycles, every 2 weeks for the past 6 months to a year. 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 Prior history of tubal ligation. Gives history of "lumpy breasts." Has had prior breast biopsy, benign findings. Has been greater than 2 years since her last mammogram. Reports chronic swelling bilateral lower extremities, "maybe a little worse the past few weeks." Hospital Course The patient was admitted to the medical floor for bilateral lower lobe pulmonary emboli. She had been on Xarelto for approximately the past 6 months. Previous to this, she had been on Coumadin and occasionally on Lovenox for bridging. Dr. Packer was consulted regarding pulmonary embolism in a patient on Xarelto. He recommended initiating Lovenox. On admission the patient was having intermittent chest and back discomfort as well as weakness in her arms. Today she has very minimal back discomfort and no chest discomfort. The weakness in her arms has resolved. She is able to be up and walking around without chest pain, lightheadedness or shortness of breath. Ambulatory oximetry showed her O2 sats to be above 90% on room air. She did not require oxygen this hospitalization. Echocardiogram was obtained in this hospital course but results are pending. Due to the patient's thrombophilia history, Dr. Packer does recommend Lovenox 150 mg subcutaneous every 12 hours indefinitely. On 02/07/2017 was felt patient was stable for dismissal to home. Case management did confirm that her pharmacy has her dose of Lovenox in stock and that her insurance will cover Lovenox. The patient is comfortable having herself Lovenox injections and has done this multiple times in the past. Homocystine blood level and echocardiogram are pending at the time of discharge. The patient will follow-up with Dr. Packer on this coming Friday. The patient also relates a recent history of difficult to control hypertension. Medications were adjusted recently by Dr. Sethi. The patient should follow-up with Dr. Sethi regarding hypertension and recently diagnosed renal stone. Greater than 30 minutes of time was spent seeing and evaluating the patient, discussing with consultants and case management. Problems: Code Status Full Code Home Meds Active Scripts Enoxaparin Sodium (Lovenox) 150 Mg/Ml Inj, 150 MG SQ BID, #14 Prov:AALIYAH CHRISTINE MD 02/07/17 Reported Medications Nebivolol HCl (Bystolic) 10 Mg Tablet, 10 MG PO BID 02/06/17 Tramadol HCl (Tramadol HCl) 50 Mg Tablet, 50 MG PO Q6HR Y for PAIN 02/06/17 Olmesartan/Amlodipin/Hcthiazid (Tribenzor 20-5-12.5 mg Tablet) 1 Each Tablet, 1 TAB PO BID 02/06/17 Levothyroxine Sodium (Levothyroxine Sodium) 175 Mcg Tablet, 175 MCG PO ACB 02/06/17 Discontinued Reported Medications Rivaroxaban (Xarelto) 20 Mg Tablet, 20 MG PO DAILY 02/06/17 Face to Face Encounter I met with patient on the day of dismissal and discussed follow up appointments , medications, and safety plan. Discharge Disposition Dismiss to home in stable condition Copies To 1: IMTIAZ PACKER Copies To 2: DENIZ SETHI II, MD, STEPHANIE L MD February 07, 2017 20:06
--- NOTE | 2017-02-10 16:21 | NUR ---
CM FOLLOW UP CALL LEFT MESSAGE #1.
--- NOTE | 2017-02-11 14:43 | ECHOF ---
DATE 02/07/2017 INDICATION Pulmonary emboli. TECHNICAL QUALITY: Technically difficult study due to hard acoustic windows. 2D, M-mode and Doppler echocardiographic images were submitted for interpretation. FINDINGS 1. CARDIAC CHAMBERS. All cardiac chamber measurements are normal. Aortic root diameter is normal. RV size and contractility appear normal. 2. LV FUNCTION. Wall thickness of 10 mm falls within upper normal range. Wall motion analysis is normal. Systolic function is normal. Ejection fraction is measured about 55-60%. Diastolic function is normal. 3. VALVES. Aortic, mitral and tricuspid valve structure and motion appear normal for age. Normal valve excursion. 4. DOPPLER. Doppler shows trace regurgitation involving mitral and tricuspid valves, neither of hemodynamic significance. Normal flow velocities however were present. 5. No evidence of pericardial effusion, intracardiac masses or demonstrable shunts. IMPRESSION 1. Normal LV size and systolic and diastolic function. 2. No significant valvular dysfunction. 3. Normal RV size and contractility. 4. Systolic PA pressure is estimated to be normal (25-30 mmHg). 5. Technical quality of the study is technically somewhat difficult nevertheless diagnostic study. [facility]
--- NOTE | 2017-02-12 16:48 | NUR ---
CM FOLLOW UP CALL LEFT MESSAGE #2
== END 2017-02-07 19:00 | disposition home or self-care (01) ==
LOC: ED 15:28 → EDHOLD 18:26 → MED 19:03
PROVIDERS: ADMIT Internal Medicine; ATTEND Internal Medicine
DX: I26.99 Other pulmonary embolism without acute cor pulmonale (principal); Z79.02 Long term (current) use of antithrombotics/antiplatelets; D68.52 Prothrombin gene mutation; Z86.718 Personal history of other venous thrombosis and embolism; Z95.828 Presence of other vascular implants and grafts; N92.1 Excessive and frequent menstruation with irregular cycle; N20.0 Calculus of kidney; I10 Essential (primary) hypertension; E03.9 Hypothyroidism, unspecified; F41.9 Anxiety disorder, unspecified; E66.01 Morbid (severe) obesity due to excess calories; Z68.43 Body mass index [BMI] 50.0-59.9, adult; I87.091 Postthrombotic syndrome with other complications of right lower extremity; Z79.899 Other long term (current) drug therapy; Z98.51 Tubal ligation status
CPT/HCPCS: 36000; 36415; 71275; 72175; 74175; 80048; 83090; 83880; 84443; 84484; 85025; 85610; 85730; 93005; 93306; 94761; 94762; 96372; 99218; 99284; J1650; J7030; J7050; Q9967